=== PATIENT | female | born 1965 | race Caucasian/White ===

== ENCOUNTER → 2016-06-13 | Outpatient (CLI) | payer MEDICAID ==
[~2016-06-13] MED LIST: B-COMPLEX-501 CAP PO; CYCLOBENZAPRINE10 MG PO; HYDROCODONE BIT1 T11 PO; Motrin,Rufen800 MG PO; NAPROSYN250 MG PO; NAPROSYN500 MG PO; NORCO 325 MG-51 TAB PO; PRILOSEC20 MG PO; VITAMIN D400 IU PO
== END | disposition home or self-care (01) ==
LOC: MRI 08:43
DX: D35.02 Benign neoplasm of left adrenal gland (principal); R10.2 Pelvic and perineal pain; R10.9 Unspecified abdominal pain; K76.0 Fatty (change of) liver, not elsewhere classified; K76.89 Other specified diseases of liver; D35.01 Benign neoplasm of right adrenal gland

== ENCOUNTER 2016-11-06 22:34 | Emergency (ER) | payer OTHER ==
[~2016-11-06] VITALS: Ht 162.5 cm; Wt 87.1 kg
== END 2016-11-06 23:03 | disposition home or self-care (01) ==
LOC: ED 22:34
DX: S80.12XA Contusion of left lower leg, initial encounter (principal); F17.200 Nicotine dependence, unspecified, uncomplicated; Z98.51 Tubal ligation status; Z90.710 Acquired absence of both cervix and uterus; W19.XXXA Unspecified fall, initial encounter; Y93.01 Activity, walking, marching and hiking; Y92.69 Other specified industrial and construction area as the place of occurrence of the external cause; Y99.9 Unspecified external cause status

== ENCOUNTER 2017-10-11 17:42 | Emergency (ER) | payer OTHER ==
[~2017-10-11] VITALS: Ht 162.5 cm; Wt 79.4 kg
[2017-10-11] MEDS ORDERED: ANAPROX DS550 MG PO (18:50)
== END 2017-10-11 19:18 | disposition home or self-care (01) ==
LOC: ED 17:42
DX: M70.42 Prepatellar bursitis, left knee (principal); Z90.710 Acquired absence of both cervix and uterus; Z98.51 Tubal ligation status

== ENCOUNTER → 2021-02-02 | Outpatient (CLI) | payer OTHER ==
[~2021-02-02] MED LIST changes: +ANAPROX DS550 MG PO
== END | disposition home or self-care (01) ==
LOC: COVID19 17:41
PROVIDERS: ATTEND Family Medicine
DX: Z11.52 Encounter for screening for COVID-19 (principal)